=== PATIENT | male | born 1995 | race Two or more races ===

== ENCOUNTER 2021-08-09 15:21 | Emergency (ER) | payer OTHER ==
[~2021-08-09] VITALS: Ht 180.3 cm; Wt 115.7 kg
[2021-08-09] MEDS ORDERED: NORFLEX100MG PO (17:32)
[2021-08-09] MEDS ORDERED: IBU800 MG PO (17:32)
== END 2021-08-09 17:50 | disposition home or self-care (01) ==
LOC: ER 15:21
DX: S13.4XXA Sprain of ligaments of cervical spine, initial encounter (principal); M54.2 Cervicalgia; V49.9XXA Car occupant (driver) (passenger) injured in unspecified traffic accident, initial encounter; Y93.89 Activity, other specified; Y92.488 Other paved roadways as the place of occurrence of the external cause; Y99.8 Other external cause status